=== PATIENT | male | born 1980 | race Caucasian/White ===

== ENCOUNTER → 2018-09-13 | Outpatient (CLI) | payer OTHER ==
--- NOTE | 2018-09-13 20:13 | Diagnostic Imaging Report ---
INDICATION: Wrist pain. EXAMINATION: Four views of the right wrist were obtained. FINDINGS: The alignment is normal. There is no fracture or dislocation. Soft tissues are unremarkable. IMPRESSION: No acute fracture or dislocation. Dictated by: Dictated on workstation # [id number]
== END ==
LOC: RAD FS 19:40
PROVIDERS: ATTEND Nurse Practitioner
DX: M25.531 Pain in right wrist (principal)
CPT/HCPCS: 73110

== ENCOUNTER → 2018-10-01 | Outpatient (CLI) | payer OTHER ==
--- NOTE | 2018-10-01 17:15 | Diagnostic Imaging Report ---
PROCEDURE: MRI right joint upper extremity without contrast. TECHNIQUE: Multiplanar, multisequence [id number] MRI of the right upper extremity was accomplished. INDICATION: Right wrist pain. COMPARISON: Right wrist radiograph from 09/13/2018. FINDINGS: Bones: There is bone marrow edema throughout the navicular bone indicative of an acute to subacute fracture. The fracture line is incomplete and located within the proximal pole (image 11, series 8). There are no features of osteonecrosis of the proximal pole. The remainder of the osseous structures of the wrist are normal. Tendons: Visualized aspects of the extensor tendons are normal. Portions of the sixth extensor compartment is not visualized. Flexor tendons are intact. No abnormal thickening of the flexor retinaculum. Intrinsic ligaments: Assessment of the intrinsic ligaments is limited without intra-articular contrast. Allowing for this, the TFC articular disc appears intact. Scapholunate ligament also is grossly intact. Soft tissues: No abnormal mass effect on the median or ulnar nerve. No soft tissue ganglion. IMPRESSION: 1. Nondisplaced fracture in the proximal pole of the scaphoid. No features of osteonecrosis/AVN in the proximal pole. 2. No tendon injury. Dictated by: Dictated on workstation # [id number]
== END ==
LOC: RAD 15:41
PROVIDERS: ATTEND Nurse Practitioner
DX: S62.034A Nondisplaced fracture of proximal third of navicular [scaphoid] bone of right wrist, initial encounter for closed fracture (principal); S62.024D Nondisplaced fracture of middle third of navicular [scaphoid] bone of right wrist, subsequent encounter for fracture with routine healing; S63.591A Other specified sprain of right wrist, initial encounter
CPT/HCPCS: 73221

== ENCOUNTER → 2018-11-01 | Outpatient (CLI) | payer OTHER ==
--- NOTE | 2018-11-01 12:59 | Diagnostic Imaging Report ---
PROCEDURE: CT right wrist without contrast. TECHNIQUE: Multiple contiguous axial images were obtained through the right wrist without the use of intravenous contrast. Sagittal and coronal reformations were then performed. Auto Exposure Controls were utilized during the CT exam to meet ALARA standards for radiation dose reduction. DATE: November 01, 2018. INDICATION: 38-year-old male, evaluation of scaphoid fracture. Fracture occurred approximately 6 weeks ago. COMPARISON: MRI right wrist October 01, 2018. Right wrist radiographs September 13, 2018. FINDINGS: There is an essentially nondisplaced predominantly transversely oriented fracture involving the waist of the scaphoid. There is a persistent visualized fracture line well illustrated on sagittal image 59 and adjacent sequential images. There is no periosteal reaction. There is less than 5% bony callus bridging with minimal bridging noted at the very volar margin of the fracture. There is no pronounced sclerosis of the proximal pole of the scaphoid to specifically diagnose avascular necrosis on CT evaluation. The scapholunate and lunotriquetral intervals are unremarkable. Additional bone alignment is unremarkable. There is no additional identified acute fracture. IMPRESSION: 1. Essentially nondisplaced fracture involving the waist of the scaphoid with no periosteal reaction and a less than 5% bony callus bridging occurring at the very volar margin of the fracture. 2. No CT evidence of avascular necrosis of the proximal pole of the scaphoid. MRI would be more sensitive for evaluation if this is of clinical concern. Dictated by: Dictated on workstation # [id number]
== END ==
LOC: RAD FS 11:27
DX: S62.001D Unspecified fracture of navicular [scaphoid] bone of right wrist, subsequent encounter for fracture with routine healing (principal)
CPT/HCPCS: 73200

== ENCOUNTER → 2018-12-12 | Outpatient (CLI) | payer OTHER ==
--- NOTE | 2018-12-12 09:55 | Diagnostic Imaging Report ---
INDICATION: Right wrist fracture, followup. TIME OF EXAM: 9:08 AM Correlation is made with prior radiographs from 09/13/2018. FINDINGS: The oblique view does show minimal residual lucency through the waist of the scaphoid. This could potentially represent residual fracture line. No displacement is seen. No other fractures are identified. Distal radius and ulna are intact. Metacarpals are intact. IMPRESSION: Minimal residual lucency in the region of the waist of the scaphoid on the oblique view which may represent a residual fracture line. This could be further evaluated with CT to evaluate for healing. No other abnormality is seen. Dictated by: Dictated on workstation # [id number]
== END ==
LOC: RAD FS 09:05
PROVIDERS: ATTEND Nurse Practitioner
DX: S62.034D Nondisplaced fracture of proximal third of navicular [scaphoid] bone of right wrist, subsequent encounter for fracture with routine healing (principal)
CPT/HCPCS: 73110

== ENCOUNTER → 2020-05-13 | Outpatient (CLI) | payer OTHER ==
[2020-05-13 10:53] LABS: BUN/CREATININE RATIO 17; CARBON DIOXIDE 29 MMOL/L (21-32); CHLORIDE 103 MMOL/L (98-107); CREATININE SERUM 1.03 MG/DL (0.60-1.30); GFR ESTIMATED > 60; POTASSIUM 4.1 MMOL/L (3.6-5.0); SODIUM 140 MMOL/L (135-145)
[2020-05-13 10:54] LABS: ALANINE AMINOTRANSFERASE 21 U/L (0-55); ALBUMIN 4.3 GM/DL (3.2-4.5); ALKALINE PHOSPHATASE 74 U/L (40-136); BILIRUBIN,TOTAL 0.8 MG/DL (0.1-1.0); CALCIUM 9.2 MG/DL (8.5-10.1); GLUCOSE 97 MG/DL (70-105); TOTAL PROTEIN 7.1 GM/DL (6.4-8.2); WHITE BLOOD COUNT 5.3 10^3/uL (4.3-11.0)
[2020-05-13 10:55] LABS: BASOPHILS % (AUTO) 1 % (0-10); EOSINOPHILS % (AUTO) 0 % (0-10); HEMATOCRIT 43 % (40-54); HEMOGLOBIN 14.9 G/DL (13.3-17.7); LYMPHOCYTES % (AUTO) 36 % (12-44); MEAN CORPUSCULAR HEMOGLOBIN 32 PG (25-34); MEAN CORPUSCULAR HGB CONC 35 G/DL (32-36); MEAN CORPUSCULAR VOLUME 90 FL (80-99); MEAN PLATELET VOLUME 9.8 FL (7.4-10.4); MONOCYTES % (AUTO) 7 % (0-12); NEUTROPHILS % (AUTO) 56 % (42-75); PLATELET COUNT 208 10^3/uL (130-400)
[2020-05-13 10:56] LABS: BAND NEUTROPHILS 2 %; BASOPHILS % (MANUAL) 1 %; EOSINOPHILS % (MANUAL) 1 %; LYMPHOCYTES # (AUTO) 1.9 X 10^3 (1.0-4.0); LYMPHOCYTES % (MANUAL) 33 %; MONOCYTES # (AUTO) 0.4 X 10^3 (0.0-1.0); MONOCYTES % (MANUAL) 2 %; NEUTROPHILS % (MANUAL) 61 %
[2020-05-13 15:24] LABS: CHOLESTEROL 188 MG/DL (< 200); HDL CHOLESTEROL 58 MG/DL (40-60); TRIGLYCERIDES 78 MG/DL (<150); VLDL CHOLESTEROL 16 MG/DL (5-40)
== END ==
LOC: LAB FS 09:57
PROVIDERS: ATTEND Family Medicine
DX: Z00.01 Encounter for general adult medical examination with abnormal findings (principal); R79.89 Other specified abnormal findings of blood chemistry
CPT/HCPCS: 36415; 80053; 80061; 82626; 84402; 84403; 84443; 85007; 85027

== ENCOUNTER → 2022-07-12 | Outpatient (CLI) | payer OTHER ==
[2022-07-12 09:01] LABS: BASOPHILS % (AUTO) 1 % (0-10); EOSINOPHILS # (AUTO) 0.1 10^3/uL (0.0-0.3); EOSINOPHILS % (AUTO) 2 % (0-10); HEMATOCRIT 45 % (40-54); HEMOGLOBIN 15.9 g/dL (13.3-17.7); LYMPHOCYTES # (AUTO) 1.8 10^3/uL (1.0-4.0); LYMPHOCYTES % (AUTO) 38 % (12-44); MEAN CORPUSCULAR HEMOGLOBIN 31 pg (25-34); MEAN CORPUSCULAR HGB CONC 35 g/dL (32-36); MEAN CORPUSCULAR VOLUME 90 fL (80-99); MONOCYTES # (AUTO) 0.4 10^3/uL (0.0-1.0); MONOCYTES % (AUTO) 8 % (0-12); NEUTROPHILS # (AUTO) 2.4 10^3/uL (1.8-7.8); NEUTROPHILS % (AUTO) 51 % (42-75); PLATELET COUNT 204 10^3/uL (130-400); WHITE BLOOD COUNT 4.7 10^3/uL (4.3-11.0)
[2022-07-12 10:30] LABS: BUN/CREATININE RATIO 15; CALCIUM 9.4 MG/DL (8.5-10.1); CARBON DIOXIDE 20 MMOL/L (21-32); CHLORIDE 103 MMOL/L (98-107); GFR ESTIMATED 85; GLUCOSE 91 MG/DL (70-105); POTASSIUM 4.1 MMOL/L (3.6-5.0); SODIUM 142 MMOL/L (135-145)
[2022-07-12 10:31] LABS: ALANINE AMINOTRANSFERASE 21 U/L (0-55); ALBUMIN 4.7 GM/DL (3.2-4.5); ALKALINE PHOSPHATASE 77 U/L (40-136); BILIRUBIN,TOTAL 0.5 MG/DL (0.1-1.0); TOTAL PROTEIN 7.7 GM/DL (6.4-8.2)
[2022-07-12 10:37] LABS: BAND NEUTROPHILS 1 %; EOSINOPHILS % (MANUAL) 3 %; LYMPHOCYTES % (MANUAL) 37 %; MONOCYTES % (MANUAL) 10 %; NEUTROPHILS % (MANUAL) 45 %
[2022-07-12 10:38] LABS: ATYPICAL LYMPHOCYTES 4 %; PLATELET ESTIMATE NORMAL; RBC MORPH NORMAL
[2022-07-12 14:44] LABS: CHOLESTEROL 191 MG/DL (< 200); HDL CHOLESTEROL 55 MG/DL (40-60); TRIGLYCERIDES 86 MG/DL (<150); VLDL CHOLESTEROL 17 MG/DL (5-40)
[2022-07-12 15:04] LABS: TSH (THYROID ANALYZER) 2.53 UIU/ML (0.35-4.94)
== END ==
LOC: LAB FS 08:09
PROVIDERS: ATTEND Family Medicine
DX: Z00.00 Encounter for general adult medical examination without abnormal findings (principal); F90.0 Attention-deficit hyperactivity disorder, predominantly inattentive type; F90.9 Attention-deficit hyperactivity disorder, unspecified type; R79.89 Other specified abnormal findings of blood chemistry
CPT/HCPCS: 36415; 80053; 80061; 84402; 84403; 84443; 85007; 85027